=== PATIENT | female | born 1950 | race Hispanic/Latino ===

== ENCOUNTER → 2019-04-09 | Outpatient (CLI) | payer MEDICARE | END | disposition home or self-care (01) | LOC: RAH 11:15 | PROVIDERS: ATTEND Internal Medicine | DX: S92.515A Nondisplaced fracture of proximal phalanx of left lesser toe(s), initial encounter for closed fracture (principal); M79.672 Pain in left foot; X58.XXXA Exposure to other specified factors, initial encounter; Y93.89 Activity, other specified; Y92.89 Other specified places as the place of occurrence of the external cause; Y99.8 Other external cause status | CPT/HCPCS: 73630 ==

== ENCOUNTER → 2019-07-02 | Outpatient (CLI) | payer MEDICARE | END | disposition home or self-care (01) | LOC: SHCH 12:34 | PROVIDERS: ATTEND Internal Medicine Cardiovascular Disease | DX: I87.2 Venous insufficiency (chronic) (peripheral) (principal) | CPT/HCPCS: 93970 ==

== ENCOUNTER → 2019-09-23 | Outpatient (CLI) | payer MEDICARE | END | disposition home or self-care (01) | LOC: SHCH 08:15 | PROVIDERS: ATTEND Internal Medicine Cardiovascular Disease | DX: I82.812 Embolism and thrombosis of superficial veins of left lower extremity (principal); Z09 Encounter for follow-up examination after completed treatment for conditions other than malignant neoplasm | CPT/HCPCS: 93971 ==

== ENCOUNTER → 2019-09-30 | Outpatient (CLI) | payer MEDICARE | END | disposition home or self-care (01) | LOC: SHCH 08:58 | PROVIDERS: ATTEND Internal Medicine Cardiovascular Disease | DX: Z09 Encounter for follow-up examination after completed treatment for conditions other than malignant neoplasm (principal) | CPT/HCPCS: 93971 ==

== ENCOUNTER → 2022-12-13 | Outpatient (CLI) | payer MEDICARE | END | disposition home or self-care (01) | LOC: RAH 09:18 | PROVIDERS: ATTEND Internal Medicine | DX: Z12.31 Encounter for screening mammogram for malignant neoplasm of breast (principal) | CPT/HCPCS: 77067 ==

== ENCOUNTER → 2025-02-20 | Outpatient (CLI) | payer OTHER | END | disposition home or self-care (01) | LOC: RAH 10:03 | PROVIDERS: ATTEND Family Medicine | DX: Z12.31 Encounter for screening mammogram for malignant neoplasm of breast (principal) | CPT/HCPCS: 77067 ==

== ENCOUNTER → 2025-04-01 | Outpatient (CLI) | payer OTHER ==
[~2025-04-01] MED LIST: IOHEXOL-350 50ML VIAL IV ONE
--- NOTE | 2025-04-02 08:28 | HMCIMG ---
BILATERAL BREAST ULTRASOUND: Finding: Real-time examination of the both breasts demonstrates mildly heterogeneous echotexture throughout both the breasts. Left breast between 11 and 12:00 there is a hypoechoic lesion which correlates with the mammogram measuring 1.0 x 0.6 x 1.2 cm. The remaining both breasts has no other lesion seen. Both axillary has a benign-appearing lymph node on the right measuring 1.5 x 0.8 x 1.9 cm. On the left axillary lymph node measures 1.7 x 0.7 x 1.2 cm.. IMPRESSION: Left breast at 11 and 12:00 there is a hypoechoic lesion which is amenable for ultrasound-guided biopsy. FINAL ASSESSMENT: ACR: BI-RAD -4. Suspicious Finding.
--- NOTE | 2025-04-02 08:30 | HMCIMG ---
DIGITAL left breast DIAGNOSTIC MAMMOGRAM Technique: The digital mammographic examination of left breast coned-down compression view in craniocaudal, mediolateral oblique views along with CAD was obtained. Bilateral breast sonogram was also obtained. History: This is a 74 years year-old female 3, para3 Ab0 . Patient has no family history of breast cancer. Patient has no complaint Reference:Prior mammogram from 04/01/2025, 02/20/2025, and 12/13/2022 are available.. Breast composition: Breast composition B: There are scattered areas of fibroglandular density. Finding: The digital mammographic examination of left breast in craniocaudal and mediolateral oblique view along with CAD demonstrates a density which is also seen on the ultrasound.. There is no evidence of any dendritic mass, cluster microcalcification or architectural distortion. The retromammary fat appears to be normal. IMPRESSION: Left breast between 11 12:00 there is a density seen which is also seen on the ultrasound which is amenable for ultrasound-guided biopsy. FINAL ASSESSMENT: ACR: BI-RAD -4. Suspicious Finding. NOTE: IF A WORK-UP OF THIS PATIENT LEADS TO A BIOPSY, PLEASE FORWARD A COPY OF THE PATHOLOGY REPORT TO OUR OFFICE REQUIRED BY [facility] FEBRUARY 12, 1994. A NEGATIVE MAMMOGRAM SHOULD NOT PRECLUDE BIOPSY OF A CLINICALLY PALPABLE SUSPICIOUS MASS, 10% OF BREAST CANCERS ARE MAMMOGRAPHICALLY OCCULT. THIS MAMMOGRAPHY FACILITY IS FULLY ACCREDITED BY THE [employer]OD AND [employer]UG [employer] (FDA). THANK YOU FOR THIS REFERRAL.
--- NOTE | 2025-04-02 08:34 | HMCIMG ---
DIGITAL UNILATERAL LATERAL LEFT BREAST GALACTOGRAM MAMMOGRAM Technique: The digital mammographic examination of left breast in craniocaudal and mediolateral oblique views along with CAD was obtained. History: This is a 74 years year-old female 2, para2 Ab0. Patient has no family history of breast cancer. Patient complaining of left breast discharge. Reference:Prior mammogram from 02/20/2025, 12/13/2022 and 2020 are available.. Breast composition: Breast composition B: There are scattered areas of fibroglandular density. PROCEDURE: After the left breast nipple was wiped with alcohol a blunt-tipped galactogram needle was introduced into the discharging duct. Approximately 1 cc of contrast was injected. This was followed by unilateral left breast mammogram Finding: The digital mammographic examination of left breast demonstrate galactogram needle to be in satisfactory position the duct is dilated with abrupt cut off suggesting of a lesion obstructing the contrast to pass.. There is no evidence of any dendritic mass, cluster microcalcification or architectural distortion. The retromammary fat appears to be normal. IMPRESSION: Approximately 2 cm from the origin of the duct there is a complete, cut off sign suggesting of a lesion possibly be a papilloma.. FINAL ASSESSMENT: ACR: BI-RAD -4. Suspicious Finding. NOTE: IF A WORK-UP OF THIS PATIENT LEADS TO A BIOPSY, PLEASE FORWARD A COPY OF THE PATHOLOGY REPORT TO OUR OFFICE REQUIRED BY [facility] FEBRUARY 12, 1994. A NEGATIVE MAMMOGRAM SHOULD NOT PRECLUDE BIOPSY OF A CLINICALLY PALPABLE SUSPICIOUS MASS, 10% OF BREAST CANCERS ARE MAMMOGRAPHICALLY OCCULT. THIS MAMMOGRAPHY FACILITY IS FULLY ACCREDITED BY THE [employer] (FDA). THANK YOU FOR THIS REFERRAL.
== END | disposition home or self-care (01) ==
LOC: RAH 13:04
PROVIDERS: ATTEND Family Medicine
DX: R92.323 Mammographic fibroglandular density, bilateral breasts (principal); N64.52 Nipple discharge; R92.8 Other abnormal and inconclusive findings on diagnostic imaging of breast; N64.89 Other specified disorders of breast
CPT/HCPCS: 77053; 77065; 76641; Q9967

== ENCOUNTER → 2025-04-23 | Outpatient (CLI) | payer OTHER ==
[2025-04-23 10:21] LABS: INR 1.07 (0.85-1.15)
--- NOTE | 2025-04-23 11:45 | NUR ---
ULTRASOUND GUIDED LEFT BREAST BIOPSY PROCEDURE PERFORMED BY DR. MADHU HUGGINS. PUNCTURE SITE LEFT BREAST AT 11 O'CLOCK AND PATIENT TOLERATED PROCEDURE WELL. SPECIMEN X3 COLLECTED AND SENT TO LAB. TISSUE MARKER DEPLOYED AT BIOPSY NEEDLE REMOVED. END OF PROCEDURE AT 1135. DRESSING APPLIED AND NO BLEEDING NOTED. DISCHARGE INSTRUCTIONS GIVEN TO PATIENT AND VERBALIZED UNDERSTANDING. MAMMOGRAM OF LEFT BREAST TO FOLLOW FOR CONFIRMATION OF TISSUE MARKER PLACEMENT.
--- NOTE | 2025-04-23 12:22 | HMCIMG ---
PERCUTANEOUS ULTRASOUND-GUIDED BIOPSY OF left BREAST MASS: CLINICAL HISTORY: This is a 74 [id number] female with left breast mass 11-12 o'clock. for ultrasound-guided biopsy. The risk and benefit was explained to the patient. The risks include bleeding and infection. The patient consented to the procedure. Procedure: Under ultrasound guidance left breast mass between 11 and 12:00. was localized. After sterile prep and drape, 1% Xylocaine was used for local anesthetic. Using a 18-gauge Bard gun a total of 4 core biopsy was obtained. The specimen was sent for histology and cell block. Patient tolerated procedure well. IMPRESSION: FINAL ASSESSMENT: Post-procedure Mammogram for Marker Placement. 1. PERCUTANEOUS ULTRASOUND-GUIDED BIOPSY OF left BREAST WITH SPECIMENS SENT FOR HISTOLOGY AND CELL BLOCK. THE PATIENT TOLERATED PROCEDURE WELL. PATHOLOGY REPORT IS PENDING. 2. PATIENT IS TO HAVE A POST BIOPSY MARKER PLACEMENT UNILATERAL left BREAST MAMMOGRAM.
--- NOTE | 2025-04-23 12:25 | HMCIMG ---
DIGITAL left breast DIAGNOSTIC MAMMOGRAM Technique: The digital mammographic examination of left breast in craniocaudal, mediolateral oblique views along with CAD was obtained post biopsy. History: This is a 74 years year-old female 3, para3 Ab0 . Patient has no family history of breast cancer. Patient has no complaint Reference:Prior mammogram from 04/01/2025, 02/20/2025, 12/13/2022 and 2020 are available for comparison. Breast composition: Breast composition B: There are scattered areas of fibroglandular density. Finding: The digital mammographic examination of left breast craniocaudal and mediolateral oblique view along with CAD demonstrates biopsy marker at 11-12 o'clock in satisfactory position post biopsy.. There is no evidence of any dendritic mass, cluster microcalcification or architectural distortion. The retromammary fat appears to be normal. IMPRESSION: Status post ultrasound-guided biopsy of the left breast lesion with a biopsy marker in satisfactory position. Pathology report is pending FINAL ASSESSMENT: Post-procedure Mammogram for Marker Placement. NOTE: IF A WORK-UP OF THIS PATIENT LEADS TO A BIOPSY, PLEASE FORWARD A COPY OF THE PATHOLOGY REPORT TO OUR OFFICE REQUIRED BY [facility] FEBRUARY 12, 1994. A NEGATIVE MAMMOGRAM SHOULD NOT PRECLUDE BIOPSY OF A CLINICALLY PALPABLE SUSPICIOUS MASS, 10% OF BREAST CANCERS ARE MAMMOGRAPHICALLY OCCULT. THIS MAMMOGRAPHY FACILITY IS FULLY ACCREDITED BY THE [employer] AND [employer] (FDA). THANK YOU FOR THIS REFERRAL.
== END ==
LOC: RAH 09:14
PROVIDERS: ATTEND Family Medicine
DX: R92.8 Other abnormal and inconclusive findings on diagnostic imaging of breast (principal); C50.212 Malignant neoplasm of upper-inner quadrant of left female breast; N64.52 Nipple discharge; F32.A Depression, unspecified; E11.42 Type 2 diabetes mellitus with diabetic polyneuropathy; K21.9 Gastro-esophageal reflux disease without esophagitis; Z98.891 History of uterine scar from previous surgery
CPT/HCPCS: 19083; 77065; 85610; 85730; 88361; 36415; 88305; 88342; 88341; A4215 ×2